=== PATIENT | male | born 1980 | race American Indian/Alaskan Native ===

== ENCOUNTER 2021-02-07 00:44 | Emergency (ER) | payer SELFPAY ==
--- NOTE | 2021-02-07 02:01 | XRay Report ---
CLINICAL DATA: L elbow pain TECHNICAL DATA: 4 views of the elbow were obtained, AP, lateral, obliques FINDINGS: Displacement of the anterior posterior fat pads are noted. Radial head fracture extending into the ar ticular space. The radial head articulates normally with the capitellum and the ulna articulates norm ally with the trochlea. No obvious fractures identified. IMPRESSION: 1. Radial head fracture as described Signer Name: Robert Busby MD Signed: 02/07/2021 1:56 AM Workstation Name: [id number]
[2021-02-07] MEDS ORDERED: IBUPROFEN 400 MG TAB PO ONE (10:37)
[2021-02-07] MEDS ORDERED: oxyCODONE /ACETAMINOPHEN 5-325MG TAB PO ONE (10:37)
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
[2021-02-07 10:46] VITALS: BP 140/90
== END 2021-02-07 11:20 | disposition home or self-care (01) ==
LOC: ED 00:44
DX: S52.125A Nondisplaced fracture of head of left radius, initial encounter for closed fracture (principal); Z79.899 Other long term (current) drug therapy; Z88.0 Allergy status to penicillin; Z91.013 Allergy to seafood; Z91.012 Allergy to eggs; W22.8XXA Striking against or struck by other objects, initial encounter; Y93.89 Activity, other specified; Y92.89 Other specified places as the place of occurrence of the external cause; Y99.8 Other external cause status
CPT/HCPCS: 99283